=== PATIENT | female | born 1975 | race Caucasian/White ===

== ENCOUNTER 2017-10-01 13:33 | Emergency (ER) | payer BC, OTHER ==
--- NOTE | 2017-10-01 14:35 | CR ---
EXAMINATION: Right forearm and right hand HISTORY: Pain COMPARISON: None TECHNIQUE: 2 views of the right forearm and 2 views of the right hand FINDINGS: There is no acute osseous abnormality, dislocation, or fracture. Bone mineralization and paulie int spaces are preserved. The radiocapitellar and radiocarpal alignment are normal. Mild negative uln ar variance. No focal soft tissue swelling. IMPRESSION: No acute osseous abnormality identified.
--- NOTE | 2017-10-01 14:40 | EDM.PDOC ---
ED HPI GENERAL MEDICAL PROBLEM - General Chief Complaint: Upper Extremity Injury/Pain Stated Complaint: RIGHT HAND PAIN Time Seen by Provider: 10/01/17 13:51 Source of Information: Reports: Patient History Limitations: Reports: No Limitations - History of Present Illness INITIAL COMMENTS - FREE TEXT/NARRATIVE: HISTORY AND PHYSICAL: History of present illness: Patient is a 42-year-old male who presents to the emergency room today with complaints of right wrist pain after raking leaves on Wednesday. She states that after raking she had sharp shooting pain that appeared to start at the wrist and radiate to her first, second, third digits and up into her forearm. 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 Previous injury or trauma or surgeries to the affected extremity. Does note some bruising to her wrist. Review of systems: As per history of present illness and below otherwise all systems reviewed and negative. Past medical history: As per history of present illness and as reviewed below otherwise noncontributory. Surgical history: As per history of present illness and as reviewed below otherwise noncontributory. Social history: No reported history of drug or alcohol abuse. Family history: As per history of present illness and as reviewed below otherwise noncontributory. Physical exam: General: Well-developed and well-nourished 42-year-old female. Alert and oriented. Nontoxic appearing and in no acute distress. HEENT: Atraumatic, normocephalic, pupils reactive, negative for conjunctival pallor or scleral icterus, mucous membranes moist, throat clear, neck supple, nontender, trachea midline. Lungs: Clear to auscultation, breath sounds equal bilaterally, chest nontender. Heart: S1S2, regular, negative for clicks, rubs, or JVD. Abdomen: Soft, nondistended, nontender. Negative for masses or hepatosplenomegaly. Negative for costovertebral tenderness. Pelvis: Stable nontender. Genitourinary: Deferred. Rectal: Deferred. Extremities: Atraumatic, cell extremities per self without difficulty or deficits, good flexion and extension of the affected wrist. Mild tenderness to the forearm/distal ulna. Strong hand grasps are equal bilaterally. Capillary refill less than 3 seconds, + CMS. Neurovascular unremarkable. Skin: Mild/faint bruise noted to the lateral right wrist. Skin intact, warm, dry. Neuro: Awake, alert, oriented. Cranial nerves II through XII unremarkable. Cerebellum unremarkable. Motor and sensory unremarkable throughout. Exam nonfocal. Patient reports that she has "intense pain" and is requesting x-rays of her hand and forearm. Does have tenderness to the forearm/distal ulna, x-ray of the forearm and hand which should include the wrist bones. The discomfort the patient is describing as the stingers are going to her first, second and third digit sound similar to carpal tunnel syndrome. This was shared with patient. Supportive care measures were reviewed with the patient. She voices understanding. States she does not have adequate pain relief with Tylenol and/ or ibuprofen. We'll prescribed Diclofenac Education was done. Diagnostics: Xray right hand/forearm Therapeutics: Ice, Splint Impression: Wrist Pain, right Plan: 1. Symptoms are consistent with Carpal tunnel syndrome. Please wear the wrist splint to alleviate impingement (please wear at night as well). Diclofenac as needed up to three times daily, take with food. May use Tylenol as needed. 2. Follow-up with orthopedic or hand surgeon 3. Return to the ED as needed as discussed. Definitive disposition and diagnosis as appropriate pending reevaluation and review of above. Right Hand Pain Score (Numeric/FACES): 6 - Related Data Allergies Allergy/AdvReac Type Severity Reaction Status Date / Time codeine Allergy Hives Verified 10/01/17 13:59 tramadol Allergy Seizure Verified 10/01/17 13:59 Home Meds: Home Meds Citalopram [Citalopram HBr] 40 mg DAILY 10/01/17 [History] Diazepam [Valium] 5 mg PRN 10/01/17 [History] levETIRAcetam [Keppra] 1.5 tab BID 10/01/17 [History] Past Medical History HEENT History: Reports: None Cardiovascular History: Reports: None Respiratory History: Reports: None Gastrointestinal History: Reports: None Genitourinary History: Reports: None Musculoskeletal History: Reports: None Neurological History: Reports: Seizure, Other (See Below) Other Neuro History: epilepsy Psychiatric History: Reports: Anxiety, Depression Endocrine/Metabolic History: Reports: None Dermatologic History: Reports: None - Infectious Disease History Infectious Disease History: Reports: None - Past Surgical History GI Surgical History: Reports: Appendectomy, Bariatric Procedure Female Surgical History: Reports: Hysterectomy, Other (See Below) Other Female Surgeries/Procedures: breast augmentation Musculoskeletal Surgical History: Reports: Other (See Below) Other Musculoskeletal Surgeries/Procedures:: L foot screws Social & Family History - Family History Family Medical History: Noncontributory - Tobacco Use Smoking Status *Q: Current Some Day Smoker Years of Tobacco use: 10 Packs/Tins Daily: 0.2 - Recreational Drug Use Recreational Drug Use: No Review of Systems - Review of Systems Review Of Systems: ROS reveals no pertinent complaints other than HPI. ED EXAM, GENERAL - Physical Exam Exam: See Below (See dictation) Course - Vital Signs Last Recorded V/S: Last Vital Signs Temp 98.1 F 10/01/17 13:54 Pulse 96 10/01/17 13:54 Resp 16 10/01/17 13:54 BP 112/77 10/01/17 13:54 Pulse Ox 96 10/01/17 13:54 - Orders/Labs/Meds Orders: Active Orders 24 hr Category Date Time Status DME for Discharge [COMM] Stat Oth 10/01/17 14:50 Ordered Departure - Departure Time of Disposition: 14:55 Disposition: Home, Self-Care 01 Clinical Impression: Wrist pain, right, Carpal tunnel syndrome of right wrist - Discharge Information Instructions: Carpal Tunnel Syndrome, [id number] Referrals: PCP,None [Primary Care Provider] - Forms: ED Department Discharge Additional Instructions: General dischargeMy general discharge The following information is given to patients seen in the emergency department who are being discharged to home. This information is to outline your options for follow-up care. We provide all patients seen in our emergency department with a follow-up referral. The need for follow-up, as well as the timing and circumstances, are variable depending upon the specifics of your emergency department visit. If you don't have a primary care physician on staff, we will provide you with a referral. We always advise you to contact your personal physician following an emergency department visit to inform them of the circumstance of the visit and for follow-up with them and/or the need for any referrals to a consulting specialist. The emergency department will also refer you to a specialist when appropriate. This referral assures that you have the opportunity for follow-up care with a specialist. All of these measure are taken in an effort to provide you with optimal care, which includes your follow-up. Under all circumstances we always encourage you to contact your private physician who remains a resource for coordinating your care. When calling for follow-up care, please make the office aware that this follow-up is from your recent emergency room visit. If for any reason you are refused follow-up, please contact the [facility] Emergency Department at and asked to speak to the emergency department charge nurse. [facility] Primary Care [address] [place] [id number] [facility] Specialty Care - Plastic Surgery Professional Building [address] [place] [address], [address] [place] [address] 1. Symptoms are consistent with Carpal tunnel syndrome. Please wear the wrist splint to alleviate impingement (please wear at night as well). Diclofenac as needed up to three times daily, take with food. May use Tylenol as needed. 2. Follow-up with orthopedic or hand surgeon 3. Return to the ED as needed as discussed. - My Orders Last 24 Hours: My Active Orders 10/01/17 14:50 DME for Discharge [COMM] Stat - Assessment/Plan Last 24 Hours: My Active Orders 10/01/17 14:50 DME for Discharge [COMM] Stat
== END 2017-10-01 15:10 | disposition home or self-care (01) ==
LOC: MW.ED 13:33
DX: G56.01 Carpal tunnel syndrome, right upper limb (principal); F17.210 Nicotine dependence, cigarettes, uncomplicated; Z88.5 Allergy status to narcotic agent; Z79.899 Other long term (current) drug therapy
CPT/HCPCS: 73090-26-RT; 73090-RT; 73120-26-RT; 73120-RT; 99283